=== PATIENT | male | born 1945 | race Caucasian/White ===

== ENCOUNTER → 2017-10-06 | Emergency (ER) | payer OTHER ==
[~2017-10-06] VITALS: Ht 167.6 cm; Wt 77.1 kg
[~2017-10-06] MED LIST: ATORVASTATIN CA10 MG PO; CLARITIN10 M1 PO; CLARITIN10 MG/TAB PO; DICLOFENAC POTA50 MG PO; DUI500 PO; NAPRO60 GM MC; SIMVASTATIN10 MG PO; TAMS0.4C PO; VASOTEC5 MG; VASOTEC5 MG PO; ZOCOR5 MG; ZYNCOF 20-400120 ML PO
== END | disposition home or self-care (01) ==
LOC: ER 13:14
DX: J03.90 Acute tonsillitis, unspecified (principal)

== ENCOUNTER 2018-10-01 09:36 | Emergency (ER) | payer OTHER ==
[~2018-10-01] VITALS: Ht 162.6 cm; Wt 78.9 kg
== END 2018-10-01 10:52 | disposition home or self-care (01) ==
LOC: ER 09:36
DX: N40.0 Benign prostatic hyperplasia without lower urinary tract symptoms (principal); Z76.0 Encounter for issue of repeat prescription

== ENCOUNTER 2018-11-10 10:08 | Outpatient (CLI) | payer OTHER | END 2018-11-10 10:14 | disposition home or self-care (01) | LOC: LAB 10:08 | DX: N40.0 Benign prostatic hyperplasia without lower urinary tract symptoms (principal) ==